=== PATIENT | male | born 1980 | race Caucasian/White ===

== ENCOUNTER → 2020-05-12 09:58 | Outpatient (CLI) | payer OTHER, SELFPAY ==
--- NOTE | ~2020-05-12 | US_ITS ---
EXAMINATION: US scrotum doppler DATE: 05/12/2020 10:23 INDICATION: Right testicular pain TECHNIQUE: Testicular sonogram utilizing grayscale and Doppler COMPARISON: None. FINDINGS: The right testis measures 4.6 x 2.6 x 3.6 cm. The left testis measures 4.3 x 2.3 x 3.0 cm. Symmetric normal grayscale appearance to both testes. There is normal vascular flow to both testes. The right e pididymis is normal with normal vascular flow. The left epididymis is normal with normal vascular july w. There is no hydrocele. Mild bilateral hydroceles with vessels dilated to 2.7 cm on the left and 3. 1 cm on the right which augment with Valsalva. IMPRESSION: 1. Mild bilateral varicoceles. Otherwise normal scrotal ultrasound. Reviewed, dictated and finalized at location A.
== END ==
PROVIDERS: PCP Internal Medicine; Visit Provider Clinical Nurse Specialist
DX: I86.1 Scrotal varices (principal)
CPT/HCPCS: 76870; 93976

== ENCOUNTER 2022-12-14 09:52 | Outpatient (CLI) | payer OTHER, SELFPAY ==
[2022-12-14 11:12] LABS: Kit Draw Collected
== END 2022-12-14 09:53 | disposition home or self-care (01) ==
LOC: ANHGOSHLAB 09:54
PROVIDERS: PCP Internal Medicine; Visit Provider Clinical Nurse Specialist
DX: E78.5 Hyperlipidemia, unspecified (principal); I10 Essential (primary) hypertension
CPT/HCPCS: 36415

== ENCOUNTER 2023-07-24 15:06 | Outpatient (CLI) | payer OTHER, SELFPAY ==
[2023-07-24 17:11] LABS: Appearance Urine Clear (Clear); Bilirubin Urine Negative (Negative); Blood Urine Negative (Negative); Color Urine Yellow (Yellow); Glucose Urine UA Negative (Negative); Ketones Urine Negative (Negative); Leukocyte Esterase Ur Negative LEU/UL (Negative); Nitrate Urine Negative (Negative); Protein Urine Negative (Negative); Specific Grav Ur 1.013 (1.001-1.035); Urobilinogen Urine 0.2 mg/dL (<2.0)
[2023-07-24 18:11] LABS: Add Urine Microscopic? NO
[2023-07-24 20:14] LABS: Prostate Specific Antigen 0.5 ng/mL (< OR = 4.0)
== END 2023-07-24 15:07 | disposition home or self-care (01) ==
LOC: ANHGOSHLAB 15:07
PROVIDERS: PCP Internal Medicine; Visit Provider Nurse Practitioner
DX: R39.11 Hesitancy of micturition (principal); Z12.5 Encounter for screening for malignant neoplasm of prostate
CPT/HCPCS: 36415; 81003; 84153; G0103

== ENCOUNTER 2024-12-01 16:38 | Emergency (ER) | payer OTHER, SELFPAY ==
--- NOTE | 2024-12-01 16:40 | ED_ITS ---
HPI - Ear Problem General Chief complaint: Ear Stated complaint: Ear Pain Time Seen by Provider: 12/01/24 16:40 Source: patient Mode of arrival: ambulatory Limitations: no limitations History of Present Illness HPI Narrative: Patient is a 44-year-old male who presents with ear popping for 2 weeks. Denies any pain, pressure, drainage or ringing. Denies any recent airplanes, underwater or loud concert. Had history of tubes in ears as a child. Denies any congestion, sore throat, cough, fever, chills, dizziness, lightheadedness. Does report mild decreased hearing. MD Complaint: ear pain Related Data Allergies Allergy/AdvReac Type Severity Reaction Status Date / Time bee venom protein (honey bee) Allergy Anaphylaxis Verified 07/29/24 08:55 venom-wasp Allergy Anaphylaxis Verified 07/29/24 08:55 Review of Systems Review of Systems: All systems reviewed & are unremarkable except as noted in HPI and below Constitutional: Constitutional: Denies body ache(s), Denies chills, Denies fever(s), Denies headache(s) and Denies malaise Eyes: Eyes: Denies blurry vision, Denies eye discharge and Denies irritation ENT: Denies vertigo, Denies dizziness, Denies ear discharge, Denies otalgia, Denies headache(s), Reports hearing loss, Denies nasal congestion, Denies nasal discharge, Denies disequilibrium, Denies tinnitus, Denies sore throat and Reports other (ear popping) Cardiovascular: Cardiovascular: Denies chest pain, Denies edema, Denies palpitations and Denies dyspnea on exertion Respiratory: Respiratory: Denies cough and Denies dyspnea on exertion Gastrointestinal: Gastrointestinal: Denies abdominal pain, Denies diarrhea, Denies nausea and Denies vomiting Musculoskeletal: Musculoskeletal: Denies back pain, Denies arthralgias and Denies muscle weakness Integumentary/Breasts: Skin/Breast: Denies pruritus and Denies rash Neurologic: Denies headache(s) Psychiatric: Psychiatric: Reports no additional psychiatric complaints Endocrine: Endocrine: Denies palpitations PMFSH Past Medical History Medical History Left hip pain HTN (hypertension) Irritability Hemorrhoids Sleep apnea Asthma Surgical History Surgical History H/O hemorrhoidectomy Family History Family History Sibling Patient's sister is in good health Patient's brother is in good health Father Hyperlipidemia Hypertension Carcinoma of colon Mother Hyperlipidemia Hypertension Social History Social History Smoking status: Never smoker Second hand tobacco smoke exposure: No Smoking end date: 11/18/05 Alcohol intake: current Alcohol use details: daily Lack of Transportation: No Lack of Food: Never True Current Housing: I Have Housing Concerned About Future Housing: No Difficulty Paying Gas/Electric Bills: No Difficulty Paying for Meds: No Currently Unemployed: No Difficulty w/ Childcare or Family Care: No Comments At time of signature, agree with nursing past medical, surgical, social and family history. There is no relevant family history pertinent to the presenting complaint? Exam Const: General: cooperative, healthy appearing, no acute distress and well nourished Nutritional Appearance: well nourished Orientation/consciousness: patient oriented x3 Limitations: no limitations HENMT: Head: normal to inspection, normocephalic and atraumatic Ears: hearing grossly normal bilaterally, EAC's normal, no periauricular adenopathy and TM abnormal wth effusion serous bilateral and with fluid behind the TM bilateral Face/Nose/Sinus: Normal external nose present, Normal nares present, Normal nasal mucous membranes and turbinates present, No nasal discharge present, normal facial exam and sinuses nontender Face and sinus: normal facial exam and sinuses nontender Mouth: Yes Normal oral and palatal mucosa present, Yes lip normal, Yes tongue normal and Yes moist mucous membranes Throat: posterior oropharynx normal, tonsils normal and uvula midline Eyes: General: appearance normal, both eyes and all related structures Alignment and Position: alignment normal and position normal Eyelids: eyelids normal Pupils: Equal, round and reactive pupils present EOM: EOMs intact bilaterally Neck: Neck: normal visual inspection, full ROM, no lymphadenopathy and supple Chest: Chest palpation & inspection: normal inspection of the chest Resp: Effort & Inspection: normal respiratory effort and able to speak in complete sentences Auscultation: clear to auscultation bilaterally, no crackles, no rales, no rhonchi and no wheezes Cardio: Rate: regular rate Rhythm: regular rhythm Heart sounds: S1 normal heart sound present and S2 normal heart sound present Skin: General skin exam: normal color and no rashes or lesions noted Neuro: General: patient oriented x3 and moves all extremities Cranial nerves: Yes Equal, round and reactive pupils present Cognition (Neuro): normal cognition Speech: normal speech Gait exam (Neuro): Normal gait present Extrem: General: normal to inspection and full ROM Psych: Appearance: grossly normal and well kempt Mental Status: mental status grossly normal Speech and movement: Normal speech and movement present Course Course Emergency Course: Patient is aware of diagnosis, understands and agrees to treatment plan.? Anticipatory guidance given.? Patient agrees to follow-up as directed and is aware of reasons to seek care at the emergency department.? Portions of this record may have been created with voice recognition software? Level of Care: Express Care Visit Vital Signs Vital signs: Reviewed Medical Decision Making MDM Narrative Medical decision making narrative: Pt well hydrated appearing, in no respiratory distress, hemodynamically stable. Recommend supportive care. The patient is stable at time of discharge the clinical impression was discussed and the parent guardian was given the opportunity to ask questions, which were addressed as completely as possible given the information available at present. Anticipatory guidance and return to care precautions were discussed and the importance of primary care follow-up was stressed and encouraged. The guardian voiced understanding of the plan, indications to return, and the need for follow-up. Exam findings show no acute concerns or changes Patient is appropriate for outpatient treatment and follow-up. Differential diagnosis considered: Vargas virus, strep pharyngitis, allergic rhinitis, upper respiratory tract infection, sinusitis, rhinosinusitis, nasopharyngitis. viral pharyngitis, otitis media, otitis externa, otitis effusion, foreign body, cerumen impaction, viral syndrome, and influenza.? Medical Records Medical records reviewed: Yes I reviewed the external patient's medical records. Discharge Plan Discharge Clinical Impression: Acute dysfunction of eustachian tube Patient Disposition: Home, Self-Care Condition: Stable Instructions: Fluid In The Ear (Serous Otitis Media) (ED) Additional Instructions: Recommend antihistamine such as Benadryl at night time and Claritin during the day until symptoms improve Flonase nasal spray, 1 spray in each nostril once twice day for 5 days and then daily until symptoms improve Also, recommend symptomatic treatment includes: rest, fluids, and increase humidity of the air at home. Recommend Acetaminophen as directed on the bottle to reduce fever, pain Please schedule a follow-up visit with your personal physician for further evaluation and treatment within 3-5days. If your symptoms persist, change or worsen significantly before you can contact your personal physician then please, without delay, go to the emergency department for further evaluation. Your blood pressure was elevated above 120/80 today at Urgent Care. This puts you above the threshold for follow up visit with a primary care provider. High blood pressure does not usually cause any symptoms, however it may lead to kidney failure, stroke, heart disease just to name a few if untreated . Many people are anxious when seeing a provider or nurse. As a result, you are not diagnosed with hypertension at this time unless your blood pressure is persi stently high at two office visits at least one week apart. Some things that can help lower blood pressure are lifestyle modifications, such as light exercise, decreased salt in diet, and weight loss. It is important to follow up with a PCP about this within 1 week. Patient Language: Albanian Prescriptions: New fluticasone propionate [Flonase Allergy Relief] 50 mcg/actuation spray,suspension 1 spray intranasal DAILY Qty: 16 0RF Rx Instructions: administer into each nostril No Action losartan 100 mg tablet 100 mg PO DAILY Qty: 90 1RF epinephrine [EpiPen 2-Derrek] 0.3 mg/0.3 mL auto-injector 0.3 mg IM ONCE PRN (Reason: anaphylaxis) Qty: 2 0RF Rx Instructions: as a single dose; may repeat once Follow-up/Referrals: Pérez Crum, [Primary Care Provider] - 3 Days Time of Disposition: 17:03
[2024-12-01 16:46] VITALS: BP 135/96; PULSE 74; RESP 16; TEMP 36.4; O2SAT 99
== END 2024-12-01 17:06 | disposition home or self-care (01) ==
PROVIDERS: Emergency Provider Nurse Practitioner Family; PCP Internal Medicine
DX: H69.83 Other specified disorders of Eustachian tube, bilateral (principal); Z87.891 Personal history of nicotine dependence; I10 Essential (primary) hypertension; J45.909 Unspecified asthma, uncomplicated
CPT/HCPCS: 99213; G0463

== ENCOUNTER 2025-07-27 09:19 | Outpatient (CLI) | payer OTHER, SELFPAY ==
--- OUTSIDE RECORDS SUMMARY | 2025-07-27 10:18 | XMS_ITS | Encounter Summary ---
Author Organization [facility] Address [address] [place] [address] Care Team Providers Care Fruit Checker Name Role Phone Pérez Crum DO Primary Care Provider [phone] Reason for Visit * Auth/Cert Specialty Diagnoses / Procedures Referred By Enmanuel t Referred To Contact Diagnoses Encounter for screening colonoscopy Family history of colon cancer in father Personal history of colonic polyps Encounter for screening colonoscopy [Z12.11] Family history of colon cancer in father [Z80.0] Personal history of colonic polyps [Z86.010] Procedures [place] COLONOSCOPY FLX DX W/COLLJ SPEC WHEN PFRMD COLONOSCOPY Referral ID Status Reason Start Date Expiration Date Visits Re quested Visits Authorized [id number] 1 1 Encounter Details Date Type Department Care Team (Late st Contact Info) Description 12/09/2024 Hospital Encounter [facility] [address] [place] [address] Penelope Reardon MD [address] [place] [address] [address] [place] [address] [place] [id number] Social History Tobacco Use Types Packs/Day Years Used Date Smoking Tobacco: Former Cigarettes Smokeless Tobacco: Never Alcohol Use Standard Drinks/Week Comments No 0 (1 standard drink = 0.6 oz pur e alcohol) AUDIT-C Answer Date Recorded Q1: How often do you have a drink containing alc ohol? 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 Gender Identity Male 06/23/2021 3:57 PM CDT Sexual Orientation Not on file documented as of this encounter Functional Status documented as of this encounter Plan of Treatment Not on file documented as of this encounter Visit Diagnoses Diagnosis Encounter for screening colonoscopy Family history of colon cancer in father Personal history of colonic polyps documented in this encounter Admitting Diagnoses Diagnosis Encounter for screening colonoscopy Family history of colon cancer in father Personal history of colonic polyps documented in this encounter Care Teams Fruit Checker Relationship Specialty Start Date End Date Pérez Crum DO PCP - General 09/20/09 documented as of this encounter
--- OUTSIDE RECORDS SUMMARY | 2025-07-27 10:18 | XMS_ITS | Clinical Summary ---
Author Organization [address] Address [address] [place] [id number] Care Team Providers Care Adjunct Phlebotomy Instructor Name Role Phone Pérez Crum DO Primary Care Provider [phone]- [phone] Allergies Active Allergy Reactions Criticality Noted Date Comments Venom-Honey Bee Anaphylaxis High Occurred when pt was 12. Wasp Venom Anaphylaxis High 10/22/2017 Medications EPINEPHrine (EPIPEN) 0.3 mg/0.3 mL injection syringe inject 0.3 milliliter by intramuscular route once as needed for anaphylaxis 2 Syringe 2 3 Active losartan (COZAAR) 100 mg tablet Take 1 tablet (100 mg total) by mouth daily Active Active Problems Problem Noted Date Diagnosed Date Tubular adenoma of colon 05/07/2024 Internal hemorrhoids 05/07/2024 Family history of colon cancer in father 021 Overview (03/29/2021): Added automatically from request for surgery [id number] Personal history of colonic polyps 03/29/2021 Overview (03/29/2021): Added automatically from request for surgery [id number] Encounter for screening colonoscopy 03/29/2021 Overview (03/29/2021): Added automatically from request for surgery [id number] Other hemorrhoids 10/22/2017 Overview (10/22/2017): 05 stapling procedure Mutch. Last colonoscopy 12/03 with great apearance. He copntinues fixated on his anus and daily uses prep H and c/o intermittent bleeding and prolapse patrick has to reduce. 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 Advised daily miralax and hi fiber diet and he desires repeat flex sig for confirmation. Sleep apnea 04/03/2014 Overview (02/21/2017): Sleep apnea Asthma 04/03/2014 Overview (02/21/2017): ASTHMA NOS Depression 04/03/2014 Overview (02/21/2017): DEPRESSIVE DISORDER NEC Attention deficit disorder 04/03/2014 Overview (02/22/2017): ADHD (Attention Deficit Hyperactivity Disorder) Immunizations Immunization Administration Dates Next Due Hep B, Adolescent or Pediatric 07/03/1995,1994,01/05/1995 Influenza LAIV (Nasal) 09/20/2009 Influenza, Split 10/04/2010 Influenza, Trivalent, IM (MDV) 07/30/2014,2012,10/03/2012,10/04/2011 MMR 05/27/1990 OPV 05/15/1986, 2,05/16/1981,03/09/1981,0 01/17/1981,1980 Td, adsorbed 04/27/1990 Tdap 06/12/2011 Surgical History Surgery Date Site/Laterality Comments COLONOSCOPY 11/18/2015 - 12/18/2015 Medical History Medical History Date Comments Hx Other Medical 08/08/2013 ER visit for in sect sting Hemorrhoids Hypertension Family History Medical History Relation Name Comments Colon cancer Father Hyperlipidemia Father Hyperlipidemi a; Hypertension Father Hypertension; Other Father colon CA, polyp s; Hypertension Mother Hypertension; Relation Name Status Comments Father Alive Mother Alive Social History Tobacco Use Types Packs/Day Years Used Date Smoking Tobacco: Former Cigarettes Smokeless Tobacco: Never Tobacco Cessation:Counseling Given: Not Answered Alcohol Use Standard Drinks/Week Comments No 0 [...] on file 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 Gender Identity Male 06/23/2021 3:57 PM CDT Sexual Orientation Not on file Obstetrics History Last Filed Vital Signs Vital Sign Reading Time Taken Comments Blood Pressure 118/83 05/07/2024 10:41 AM CDT Pulse 67 05/07/2024 10:41 AM CDT Temperature 36.9 C (98.5 F) 06/30/2021 8:40 AM CDT Respiratory Rate 20 06/30/2021 8:40 AM CDT Oxygen Saturation 96% 05/07/2024 10:41 AM CDT Inhaled Oxygen Concentration - - Weight 103 kg (227 lb 1.6 oz) 05/07/2024 10:41 A M CDT Height 175.3 cm (5' 9) 05/07/2024 10:41 AM CDT Body Mass Index 33.54 05/07/2024 10:41 AM CDT Plan of Treatment Health Maintenance Due Date Last Done Comments Depression Screening 1980 Hepatitis C Screening 1980 Regular Well Visit/Exam 18-64 1998 Pneumococcal vaccine <65 (1 of 2 - PCV) 1999 HPV Vaccines (1 - 3-dose SCD M series) 2007 Varicella Vaccines (1 of 2 - 13+ 2-dose series) 10/18/2009 DTaP/Tdap/Td Vaccine (3 - Td or Tdap) 06/12/2021 06/12/2011, 04/27/1990 Influenza Vaccine (#1) 2025 , 09/15/2019, 08/26/2017, Additional history exists Hepatitis B Screening Completed 07/03/1995 , 02/02/1995, 01/05/1995 Insurance [employer] [facility] PPO [employer] [facility] HMO [facility]ETNA [facility] Advance Directives For more information, please contact: [phone] * Full Code (Latest Code Status on File) Date Activated Date Inactivated Comments 06/30/2021 8:14 AM 06/30/2021 12:52 PM * Full Code Date Activated Date Inactivated Comments 06/30/2021 7:14 AM 06/30/2021 8:14 AM Care Teams Adjunct Phlebotomy Instructor Relationship Specialty Start Date End Date Pérez Crum DO PCP - General 09/20/09
[2025-07-27 13:10] LABS: Hematocrit 45.3 % (42.0-52.0); Hemoglobin 15.4 g/dL (14.0-18.0); Immature Granulocyte Percent A 0.3 % (0-0.5); Lymphocytes Absolute Auto 1.99 K/mm3 (0.9-3.2); Mean Corpuscular HGB Conc 34.0 g/dl (32-36); Mean Corpuscular Hemoglobin 30.3 pg (26-34); Mean Corpuscular Volume 89.2 fl (80-100); Nucleated Red Blood Cells Absolute Auto 0.000 K/mm3 (0.0-0.012); Nucleated Red Blood Cells Perc 0.0 % (0.0-0.2); Platelet Count Result 226 k/mm3 (150-375); Red Blood Count 5.08 M/mm3 (4.6-6.20); White Blood Count 6.6 K/mm3 (4.5-10.0)
[2025-07-27 13:18] LABS: Alanine Aminotransferase 25 U/L (6-50); Albumin Level 4.9 g/dL (3.5-5.1); Alkaline Phosphatase 86 U/L (38-126); Anion Gap 11 mmol/L (4-12); Aspartate Amino Transferase 40 U/L (17-59); Bilirubin,Total 0.8 mg/dL (0.2-1.3); Blood Urea Nitrogen 12 mg/dL (9-20); Calcium 9.8 mg/dL (8.4-10.2); Carbon Dioxide 28 mmol/L (22-30); Chloride 101 mmol/L (98-107); Cholesterol 215 mg/dL (0-200); Estimated Glomerular Filt Rate > 60; Glucose 85 mg/dL (65-110); HDL Direct 38 mg/dL; Potassium 4.1 mmol/L (3.4-5.0); Sodium 140 mmol/L (137-145); Total Protein 8.5 g/dL (6.3-8.2); Triglycerides 189 mg/dL (<150)
[2025-07-27 13:54] LABS: Prostate Specific Antigen 0.7 ng/mL (< OR = 4.0); Thyroid Stimulating Hormone 1.170 uIU/mL (0.465-4.680)
== END 2025-07-27 09:20 | disposition home or self-care (01) ==
LOC: ANHGOSHLAB 09:20
PROVIDERS: PCP Internal Medicine; Visit Provider Nurse Practitioner
DX: E78.5 Hyperlipidemia, unspecified (principal); I10 Essential (primary) hypertension; Z12.5 Encounter for screening for malignant neoplasm of prostate
CPT/HCPCS: 36415; 80053; 80061; 84153; 84443; 85025; G0103